=== PATIENT | male | born 1955 | race Asian ===

== ENCOUNTER 2018-03-21 22:44 | Emergency (ER) | payer BC ==
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
[2018-03-22 01:46] VITALS: BP 148/81
--- NOTE | 2018-03-22 09:15 | PN ---
Progress Note - Progress Note Date of Service: 03/22/18 Note: xray read today by radiology xray: IMPRESSION: PROBABLE NONDISPLACED FRACTURE OF THE DISTAL FIBULA. called patient and is requesting boot which will have placed at front desk coordinator.
== END 2018-03-22 01:45 | disposition home or self-care (01) ==
LOC: ED 22:44
DX: S93.401A Sprain of unspecified ligament of right ankle, initial encounter (principal); M25.571 Pain in right ankle and joints of right foot; W19.XXXA Unspecified fall, initial encounter; Y92.9 Unspecified place or not applicable
CPT/HCPCS: 99282